=== PATIENT | female | born 1990 | race Caucasian/White ===

== ENCOUNTER 2018-02-12 17:54 | Outpatient (CLI) | payer MEDICAID ==
[2018-02-12] MEDS ORDERED: ONDANSETRON 4 MG INJ IV (19:30)
[2018-02-12] MEDS: LACTATED RINGER'S 1,000 ML IV (19:47)
== END 2018-02-12 21:42 | disposition home or self-care (01) ==
LOC: OBT 17:54 → L-D 17:55 → OBT 21:42
DX: O26.893 Other specified pregnancy related conditions, third trimester (principal); A08.4 Viral intestinal infection, unspecified; Z3A.27 27 weeks gestation of pregnancy
CPT/HCPCS: 96360; 96361

== ENCOUNTER 2018-05-01 14:22 | Outpatient (CLI) | payer MEDICAID ==
[2018-05-01 15:53] LABS: ADD UMIC NO; UR ASCORBIC ACID NEGATIVE (NEGATIVE); UR BILIRUBIN (Dip) NEGATIVE (NEGATIVE); UR BLOOD (Dip) NEGATIVE (NEGATIVE); UR CLARITY CLEAR (CLEAR); UR COLOR YELLOW (YELLOW); UR GLUCOSE (Dip) 1+ mg/dL (NEGATIVE); UR KETONES (Dip) NEGATIVE (NEGATIVE); UR LEUKOCYTE ESTERASE (Dip) NEGATIVE Leu/ul (NEGATIVE); UR NITRITE (Dip) NEGATIVE (NEGATIVE); UR SPECIFIC GRAVITY (Dip) 1.009 (1.003-1.030); UR TOTAL PROTEIN (Dip) NEGATIVE (NEGATIVE); UR UROBILINOGEN (Dip) NEGATIVE (NEGATIVE)
[2018-05-01 16:06] LABS: RUPTURE FETAL MEMBRANES NEGATIVE (NEGATIVE)
== END 2018-05-01 16:19 | disposition home or self-care (01) ==
LOC: OBT 14:22 → L-D 14:22 → OBT 16:19
DX: O62.9 Abnormality of forces of labor, unspecified (principal); Z3A.38 38 weeks gestation of pregnancy
CPT/HCPCS: 76818; 81003; 84112